=== PATIENT | female | born 1945 | race Caucasian/White ===

== ENCOUNTER 2016-07-28 14:00 | Emergency (ER) | payer OTHER ==
[~2016-07-28] VITALS: Ht 160 cm; Wt 220.0 kg
[~2016-07-28 14:00] MED LIST: ACID CONTROLLER20 MG PO; ADVAIR HFA120 INHALA IH; ALBUTEROL2.5 MG/3 M IH; AMBIEN10 M1 PO; AMBIEN10 MG PO; AMBIEN5 MG PO; AMOX TR-K CLV1 EAC4 PO; ANTIBIOTIC; ASPIR 8181 M1 PO; ATIVAN0.5 MG PO; Advair HFA 115/21 IH; Ambien PO; BENTYL10 MG PO; BP PILL; BUSPAR10 MG PO; Bentyl PO; CARAFATE1 GM PO; CARDIZEM CD,CA180 MG PO; CARDIZEM CD240 MG PO; CARTIA XT240 MG PO; CEFTIN500 MG PO; CELEXA10 MG PO; CELEXA20 MG PO; CIPRO500 MG PO; CLONIDINE HCL0.1 MG PO; COLACE100 MG PO; COUMADIN,JANTO2.5 MG PO; COUMADIN,JANTOV10 MG PO; COUMADIN,JANTOVE4 MG PO; COUMADIN,JANTOVE5 MG PO; COUMADIN3 M1 PO; COUMADIN5 MG PO; COUMADIN6 MG PO; COZAAR100 MG PO; Combivent IH; Coumadin,Jantoven PO; Cozaar PO; DEPAKOTE500 MG PO; DIGOXIN125 MCG PO; DILTIAZEM 24HR240 MG PO; DOXYCYCLINE HY100 MG PO; DUONEB 2.5-0.5 M3 ML IH; DUONEB3 ML IH; ENDOCET 5-3251 EACH PO; FEOSOL325 MG PO; FEROSUL325 MG PO; FUROSEMIDE20 MG PO; FUROSEMIDE40 MG PO; Feosol PO; K-DUR10 MEQ PO; K-DUR20 MEQ PO; K-Dur PO; KEPPRA250 MG PO; LASIX20 MG PO; LEVAQUIN750 MG PO; LIDOCAINE700 MG TD; LIDODERM 5% P1 PATCH TD; LISINOPRIL30 MG PO; LOPRESSOR25 MG PO; LORAZEPAM0.5 MG PO; LOSARTAN POTAS100 MG PO; LOSARTAN POTASS50 MG PO; LYRICA75 MG PO; Lasix PO; Levaquin PO; METHADONE5 MG PO; METHADOSE5 MG PO; METOPROLOL SUCC50 MG PO; MOTRIN600 MG PO; Methadone HCl PO; NORCO 5/3251 TABLET PO; NORVASC5 MG PO; OXYCODONE HCL10 MG PO; OXYCODONE HCL5 MG PO; PANTOPRAZOLE SO40 MG PO; PERCOCET; PERCOCET 10/1 TABLET PO; PERCOCET 5/31 TABLET PO; PERCOCET 7.51 TABLET PO; PREDNISONE10 M1 PO; PREDNISONE10 MG PO; PREDNISONE20 MG PO; PROAIR HFA8.5 GM IH; PROTONIX40 MG PO; PROVENTIL HFA6.7 GM IH; PROVENTIL,2.5 MG/3 M IH; Protonix PO; ROBITUSSIN AC,T10 ML PO; ROXICODONE5 MG PO; SILVADENE20 GM TP; SPIRIVA RESPIMAT4 GM IH; SUBOXONE 8 MG-1 EAC2 SL; Slow Fe PO; THERAGRAN1 TABLET PO; TOPROL XL50 MG PO; TYLENOL EXTRA500 MG PO; TYLENOL WITH C1 EACH PO; TYLENOL325 M1 PO; Tylenol Regular Stre PO; ULTRAM50 MG PO; VALIUM2 MG PO; VALIUM5 MG PO; VAPOR INHALER50 MG BOTH NARES; WARFARIN SODIUM2 MG PO; WARFARIN SODIUM6 MG PO; ZESTRIL,PRINIVI20 MG PO; ZOCOR80 MG PO; ZOLPIDEM TARTRA10 MG PO; ZOLPIDEM TARTRAT5 MG PO; [UNRECOGNIZED DRUG - REMARK]; ambien; celeXA PO; losartan
[2016-07-28 15:03] LABS: HEMATOCRIT 31.2 % (36.0-46.0); MCH 28.7 PG (29.0-34.0); MCHC 32.4 G/DL (30.0-36.0); MCV 88.6 FL (83-99); MEAN PLAT.VOLUME 10.7 uM^3 (9.5-12.4); PLATELET COUNT 199 K/uL (156-360); RBC DIS.WIDTH-CV 15.3 % (11.8-14.6); RBC DIS.WIDTH-SD 48.4 % (39-53); RED BLOOD COUNT 3.52 M/uL (3.80-5.20)
[2016-07-28 15:09] LABS: CHLORIDE 102 mEq/L (99-109); POTASSIUM 3.1 mEq/L (3.7-5.4); SODIUM 137 mEq/L (136-147)
[2016-07-28 15:10] LABS: GLUCOSE 109 mg/dL (70-99)
[2016-07-28 15:12] LABS: ANION GAP 10 MEQ/L (2-14)
[2016-07-28 15:14] LABS: GFR ESTIMATE (CALCULATED) 58 mL/min/; SERUM ETHYL ALCOHOL < 10 mg/dL
[2016-07-28 15:16] LABS: UREA NITROGEN (BUN) 12 mg/dL (9-23)
[2016-07-28 15:18] LABS: SALICYLATE < 5.0 MG/DL (15-30)
[2016-07-28 15:22] LABS: ADD MIUA? YES; BILIRUBIN NEGATIVE; BLOOD SMALL; COLOR YELLOW ((YELLOW)); GLUCOSE (STRIP) NEGATIVE; KETONES NEGATIVE; LEUKOCYTES MODERATE; NITRITE NEGATIVE; PROTEIN (STRIP) NEGATIVE; SPECIFIC GRAVITY 1.012 (1.000-1.030); UROBILINOGEN 0.2 MG/DL (0.2-1.0)
[2016-07-28 15:38] LABS: AMPHETAMINE NEGATIVE (500 ng/mL); BARBITURATES PRESUMPTIVE POSITIVE (200 ng/mL); BENZODIAZEPINES NEGATIVE (150 ng/mL); COCAINE NEGATIVE (150 ng/mL); INTERNAL CONTROLS VALID? YES; METHADONE NEGATIVE (200 ng/mL); METHAMPHETAMINE NEGATIVE (500 ng/mL); OPIATES (MORPHINE) PRESUMPTIVE POSITIVE (100 ng/mL); OXYCODONE PRESUMPTIVE POSITIVE (100 ng/mL); PHENCYCLIDINE NEGATIVE (25 ng/mL); PROPOXYPHENE NEGATIVE (300 ng/mL); THC CANNABINOIDS NEGATIVE (50 ng/mL); TRICYCLIC ANTIDEPRESSANTS NEGATIVE (300 ng/mL)
[2016-07-28 15:39] LABS: ADD MEDTOX COMMENT Y
[2016-07-28 15:55] LABS: BACTERIA NONE SEEN /HPF; EPITHELIAL CELLS NONE SEEN /HPF; MUCUS NONE SEEN /LPF; UCUL ADDED? NO; WHITE BLOOD CELLS 0-5 /HPF (0-5)
[2016-07-28 19:00] VITALS: BP 105/87
== END 2016-07-28 19:02 | disposition home or self-care (01) ==
LOC: EME 14:00
PROVIDERS: Emergency Medicine
DX: F32.9 Major depressive disorder, single episode, unspecified (principal)
CPT/HCPCS: 80048; 81003; 84999; 85027; 90837; 93005; 99281; 99285; G0480

== ENCOUNTER 2016-08-23 14:30 | Inpatient (IN) | payer OTHER ==
[~2016-08-23] VITALS: Ht 162.6 cm; Wt 104.6 kg
[2016-08-23 15:30] LABS: HEMATOCRIT 33.1 % (36.0-46.0); MCH 28.7 PG (29.0-34.0); MCHC 31.1 G/DL (30.0-36.0); MCV 92.2 FL (83-99); MEAN PLAT.VOLUME 9.8 uM^3 (9.5-12.4); RBC DIS.WIDTH-SD 54.4 % (39-53); RED BLOOD COUNT 3.59 M/uL (3.80-5.20)
[2016-08-23 15:37] LABS: PLATELET COUNT 265 K/uL (156-360); WHITE BLOOD COUNT 7.2 K/uL (4.1-10.2)
[2016-08-23 15:39] LABS: CHLORIDE 105 mEq/L (99-109); POTASSIUM 3.9 mEq/L (3.7-5.4); SODIUM 140 mEq/L (136-147)
[2016-08-23 15:41] LABS: GLUCOSE 100 mg/dL (70-99)
[2016-08-23 15:43] LABS: ANION GAP 9 MEQ/L (2-14)
[2016-08-23 15:44] LABS: PROTHROMBIN TIME 66.9 (9.2-11.2); PTT 53.1 (25-32)
[2016-08-23 15:45] LABS: GFR ESTIMATE (CALCULATED) 43 mL/min/
[2016-08-23 15:46] LABS: UREA NITROGEN (BUN) 16 mg/dL (9-23)
[2016-08-23 15:47] LABS: INTER. NORMALIZED RATIO 6.2
[2016-08-23 15:53] LABS: DIGOXIN 0.8 ng/mL (0.8-2.0)
[2016-08-23 16:10] LABS: ADD MIUA? YES; BILIRUBIN NEGATIVE; BLOOD NEGATIVE; COLOR YELLOW ((YELLOW)); GLUCOSE (STRIP) NEGATIVE; KETONES NEGATIVE; LEUKOCYTES SMALL; NITRITE POSITIVE; PROTEIN (STRIP) NEGATIVE; SPECIFIC GRAVITY 1.018 (1.000-1.030); UROBILINOGEN 0.2 MG/DL (0.2-1.0)
[2016-08-23 16:37] LABS: BACTERIA 2+ /HPF; CALCIUM OXALATE CRYSTALS 1+ /HPF; EPITHELIAL CELLS RARE /HPF; HYALINE CASTS 15-20 /LPF; MUCUS 1+ /LPF; RED BLOOD CELLS 0-5 /HPF (0-5); UCUL ADDED? YES
[2016-08-23] MEDS ORDERED: LOPRESSOR25 MG PO (16:42)
[2016-08-23] MEDS ORDERED: FLUOXETINE HCL20 MG PO (16:43)
[2016-08-23] MEDS ORDERED: LOSARTAN POTAS100 MG PO (16:44)
[2016-08-23] MEDS ORDERED: DIGOX125 MCG PO (17:38)
[2016-08-23 20:10] LABS: TROP-I INTERPRETATION NEGATIVE; TROPONIN-I 0.02 ng/mL (0.0-0.30)
[2016-08-23 20:23] VITALS: BP 99/53
[2016-08-24 00:46] VITALS: BP 112/65
[2016-08-24 01:11] LABS: TROP-I INTERPRETATION NEGATIVE; TROPONIN-I < 0.01 ng/mL (0.0-0.30)
[2016-08-24 03:38] VITALS: BP 110/54
[2016-08-24 07:41] VITALS: BP 115/74
[2016-08-24 07:46] LABS: PROTHROMBIN TIME 57.3 (9.2-11.2)
[2016-08-24 07:59] LABS: ANION GAP 10 MEQ/L (2-14); CHLORIDE 105 MEQ/L (99-109); GFR ESTIMATE (CALCULATED) 52 mL/min/; GLUCOSE 82 mg/dL (70-99); HEMATOCRIT 31.7 % (36.0-46.0); MCH 28.8 PG (29.0-34.0); MCHC 31.2 G/DL (30.0-36.0); MCV 92.2 FL (83-99); MEAN PLAT.VOLUME 10.1 uM^3 (9.5-12.4); PLATELET COUNT 238 K/uL (156-360); POTASSIUM 3.4 MEQ/L (3.7-5.4); RBC DIS.WIDTH-SD 53.8 % (39-53); RED BLOOD COUNT 3.44 M/uL (3.80-5.20); SAMPLE HEMOLYSIS CHECK 0; SAMPLE ICTERIC CHECK 0; SAMPLE LIPEMIA CHECK 0; SODIUM 142 MEQ/L (136-147); UREA NITROGEN (BUN) 15 mg/dL (9-23)
[2016-08-24 08:02] LABS: WHITE BLOOD COUNT 4.9 K/uL (4.1-10.2)
[2016-08-24 08:06] LABS: TROP-I INTERPRETATION NEGATIVE; TROPONIN-I < 0.01 ng/mL (0.0-0.30)
[2016-08-24 08:10] LABS: INTER. NORMALIZED RATIO 5.3
[2016-08-24 11:42] VITALS: BP 112/69
[2016-08-24 15:18] VITALS: BP 117/64
[2016-08-24 20:00] VITALS: BP 111/67
[2016-08-25] VITALS (9 sets, daily range): BP systolic 103–160; BP diastolic 67–84
[2016-08-25 07:55] LABS: INTER. NORMALIZED RATIO 3.7
[2016-08-25 08:03] LABS: ANION GAP 7 MEQ/L (2-14); CHLORIDE 107 MEQ/L (99-109); GFR ESTIMATE (CALCULATED) > 59 mL/min/; GLUCOSE 94 mg/dL (70-99); POTASSIUM 3.5 MEQ/L (3.7-5.4); SAMPLE HEMOLYSIS CHECK 0; SAMPLE ICTERIC CHECK 0; SAMPLE LIPEMIA CHECK 0; SODIUM 142 MEQ/L (136-147); UREA NITROGEN (BUN) 12 mg/dL (9-23)
[2016-08-25 08:20] LABS: HEMATOCRIT 28.1 % (36.0-46.0); MCH 29.2 PG (29.0-34.0); MCV 91.2 FL (83-99); MEAN PLAT.VOLUME 10.1 uM^3 (9.5-12.4); PLATELET COUNT 222 K/uL (156-360); RBC DIS.WIDTH-CV 16.2 % (11.8-14.6); RBC DIS.WIDTH-SD 53.2 % (39-53); RED BLOOD COUNT 3.08 M/uL (3.80-5.20); WHITE BLOOD COUNT 4.4 K/uL (4.1-10.2)
[2016-08-26 04:00] VITALS: BP 151/81
[2016-08-26 07:27] LABS: HEMATOCRIT 30.4 % (36.0-46.0); MCH 28.4 PG (29.0-34.0); MCHC 31.9 G/DL (30.0-36.0); MCV 89.1 FL (83-99); MEAN PLAT.VOLUME 10.3 uM^3 (9.5-12.4); PLATELET COUNT 243 K/uL (156-360); RED BLOOD COUNT 3.41 M/uL (3.80-5.20); WHITE BLOOD COUNT 5.2 K/uL (4.1-10.2)
[2016-08-26 07:45] LABS: ANION GAP 8 MEQ/L (2-14); CHLORIDE 105 MEQ/L (99-109); GFR ESTIMATE (CALCULATED) > 59 mL/min/; GLUCOSE 104 mg/dL (70-99); POTASSIUM 3.3 MEQ/L (3.7-5.4); SAMPLE HEMOLYSIS CHECK 0; SAMPLE ICTERIC CHECK 0; SAMPLE LIPEMIA CHECK 0; SODIUM 141 MEQ/L (136-147); UREA NITROGEN (BUN) 9 mg/dL (9-23)
[2016-08-26 08:02] VITALS: BP 143/92
[2016-08-26 08:02] LABS: INTER. NORMALIZED RATIO 1.9; PROTHROMBIN TIME 19.4 (9.2-11.2)
[2016-08-26 12:00] VITALS: BP 117/81
[2016-08-26 15:48] VITALS: BP 111/68
[2016-08-26 19:32] VITALS: BP 126/75
[2016-08-27 00:16] VITALS: BP 137/80
[2016-08-27 04:32] VITALS: BP 129/77
[2016-08-27 06:38] LABS: HEMATOCRIT 30.6 % (36.0-46.0); MCHC 32.4 G/DL (30.0-36.0); MCV 89.7 FL (83-99); PLATELET COUNT 238 K/uL (156-360); RBC DIS.WIDTH-CV 16.3 % (11.8-14.6); RED BLOOD COUNT 3.41 M/uL (3.80-5.20); WHITE BLOOD COUNT 5.4 K/uL (4.1-10.2)
[2016-08-27 06:59] LABS: INTER. NORMALIZED RATIO 1.4; PROTHROMBIN TIME 14.5 (9.2-11.2)
[2016-08-27 07:02] LABS: ANION GAP 10 MEQ/L (2-14); CHLORIDE 103 MEQ/L (99-109); GFR ESTIMATE (CALCULATED) > 59 mL/min/; GLUCOSE 106 mg/dL (70-99); POTASSIUM 3.3 MEQ/L (3.7-5.4); SAMPLE HEMOLYSIS CHECK 0; SAMPLE ICTERIC CHECK 0; SAMPLE LIPEMIA CHECK 0; SODIUM 141 MEQ/L (136-147); UREA NITROGEN (BUN) 8 mg/dL (9-23)
[2016-08-27 08:40] VITALS: BP 147/67
[2016-08-27 15:54] VITALS: BP 147/85
[2016-08-27 19:59] VITALS: BP 129/74
[2016-08-27 23:57] VITALS: BP 129/76
[2016-08-28 04:07] VITALS: BP 127/79
[2016-08-28 07:32] VITALS: BP 156/71
[2016-08-28 07:45] LABS: INTER. NORMALIZED RATIO 1.3
[2016-08-28 11:06] VITALS: BP 170/85
[2016-08-28] MEDS ORDERED: XARELTO20 MG PO (11:46)
[2016-08-28] MEDS ORDERED: FERROUS SULFAT325 MG PO (11:46)
[2016-08-28] MEDS ORDERED: CEFTIN500 MG PO (11:46)
[2016-08-28] MEDS ORDERED: AMBIEN5 MG PO (12:18)
== END 2016-08-28 16:35 | disposition home health service (06) | DRG 315 ==
LOC: EME 14:30 → 5SOUTH 18:31 → EDOF 18:31 → 5SOUTH 20:10
PROVIDERS: Emergency Medicine; Hospitalist; Nurse Practitioner Adult Health; Physician Assistant Medical
DX: I95.89 Other hypotension (principal); D68.32 Hemorrhagic disorder due to extrinsic circulating anticoagulants; I27.2 Other secondary pulmonary hypertension; J44.9 Chronic obstructive pulmonary disease, unspecified; E66.01 Morbid (severe) obesity due to excess calories; R00.1 Bradycardia, unspecified; I48.2 Chronic atrial fibrillation; N39.0 Urinary tract infection, site not specified; R55 Syncope and collapse; I10 Essential (primary) hypertension; T50.995A Adverse effect of other drugs, medicaments and biological substances, initial encounter; G89.29 Other chronic pain; Z79.01 Long term (current) use of anticoagulants; E78.5 Hyperlipidemia, unspecified; I25.2 Old myocardial infarction; I25.10 Atherosclerotic heart disease of native coronary artery without angina pectoris; J45.909 Unspecified asthma, uncomplicated; Z86.718 Personal history of other venous thrombosis and embolism; F31.9 Bipolar disorder, unspecified; I73.9 Peripheral vascular disease, unspecified; T45.515A Adverse effect of anticoagulants, initial encounter; M79.7 Fibromyalgia; I35.0 Nonrheumatic aortic (valve) stenosis; K21.9 Gastro-esophageal reflux disease without esophagitis; Z95.9 Presence of cardiac and vascular implant and graft, unspecified; R51 Headache; E87.6 Hypokalemia; Z68.39 Body mass index [BMI] 39.0-39.9, adult
CPT/HCPCS: 70450; 71010; 73560; 80048; 80162; 81003; 82272; 84132; 84443; 84484; 85027; 85610; 85730; 87040; 87077; 87086; 87186; 93005; 94640 76; 99202; 99281; 99285; J0696; J1940; J7030; J7050

== ENCOUNTER 2016-10-17 14:54 | Observation (INO) | payer OTHER ==
[~2016-10-17] VITALS: Ht 162.6 cm; Wt 95.8 kg
[~2016-10-17 14:54] MED LIST changes: +DIGOX125 MCG PO; +FERROUS SULFAT325 MG PO; +FLUOXETINE HCL20 MG PO; +XARELTO20 MG PO
[2016-10-17 15:48] LABS: HEMATOCRIT 38.9 % (36.0-46.0); MCH 30.1 PG (29.0-34.0); MCHC 32.6 G/DL (30.0-36.0); MCV 92.2 FL (83-99); MEAN PLAT.VOLUME 11.1 uM^3 (9.5-12.4); PLATELET COUNT 215 K/uL (156-360); RBC DIS.WIDTH-CV 15.1 % (11.8-14.6); RBC DIS.WIDTH-SD 51.6 % (39-53); RED BLOOD COUNT 4.22 M/uL (3.80-5.20); WHITE BLOOD COUNT 5.9 K/uL (4.1-10.2)
[2016-10-17 15:56] LABS: CHLORIDE 100 mEq/L (99-109); POTASSIUM 2.8 mEq/L (3.7-5.4); SODIUM 141 mEq/L (136-147)
[2016-10-17 15:59] LABS: GLUCOSE 128 mg/dL (70-99)
[2016-10-17 16:00] LABS: ANION GAP 11 MEQ/L (2-14)
[2016-10-17 16:01] LABS: TOTAL BILIRUBIN 0.5 mg/dL (0.0-1.0)
[2016-10-17 16:02] LABS: ALKALINE PHOSPHATASE 123 IU/L (3-129); GFR ESTIMATE (CALCULATED) 52 mL/min/
[2016-10-17 16:03] LABS: UREA NITROGEN (BUN) 10 mg/dL (9-23)
[2016-10-17 16:11] LABS: TROP-I INTERPRETATION NEGATIVE; TROPONIN-I < 0.01 ng/mL (0.0-0.30)
[2016-10-17 18:27] LABS: ADD MIUA? YES; BILIRUBIN NEGATIVE; BLOOD SMALL; COLOR YELLOW ((YELLOW)); GLUCOSE (STRIP) NEGATIVE; KETONES NEGATIVE; LEUKOCYTES LARGE; NITRITE NEGATIVE; PROTEIN (STRIP) NEGATIVE; SPECIFIC GRAVITY 1.012 (1.000-1.030); UROBILINOGEN 0.2 MG/DL (0.2-1.0)
[2016-10-17 18:34] LABS: BACTERIA NONE SEEN /HPF; EPITHELIAL CELLS RARE /HPF; MUCUS TRACE /LPF; RED BLOOD CELLS 0-5 /HPF (0-5); UCUL ADDED? NO; WHITE BLOOD CELLS 30-40 /HPF (0-5)
[2016-10-17] MEDS ORDERED: XARELTO20 MG PO (19:20)
[2016-10-17] MEDS ORDERED: PERCOCET 7.51 TABLET PO (19:20)
[2016-10-17] MEDS ORDERED: AMBIEN5 MG PO (19:20)
[2016-10-17 22:23] VITALS: BP 131/71
[2016-10-17 23:05] LABS: POTASSIUM 2.8 mEq/L (3.7-5.4)
[2016-10-17 23:17] LABS: TROP-I INTERPRETATION NEGATIVE; TROPONIN-I 0.01 ng/mL (0.0-0.30)
[2016-10-17 23:19] LABS: DIGOXIN 0.7 ng/mL (0.8-2.0)
[2016-10-18 04:30] LABS: MAGNESIUM 1.6 mg/dL (1.3-2.7)
[2016-10-18 04:34] VITALS: BP 102/54
[2016-10-18 05:57] LABS: CHLORIDE 105 mEq/L (99-109); POTASSIUM 3.1 mEq/L (3.7-5.4); SODIUM 143 mEq/L (136-147)
[2016-10-18 05:58] LABS: MAGNESIUM 1.7 mg/dL (1.3-2.7)
[2016-10-18 05:59] LABS: GLUCOSE 99 mg/dL (70-99)
[2016-10-18 06:00] LABS: ANION GAP 8 MEQ/L (2-14)
[2016-10-18 06:03] LABS: GFR ESTIMATE (CALCULATED) > 59 mL/min/
[2016-10-18 06:04] LABS: UREA NITROGEN (BUN) 10 mg/dL (9-23)
[2016-10-18 06:12] LABS: TROP-I INTERPRETATION NEGATIVE; TROPONIN-I < 0.01 ng/mL (0.0-0.30)
[2016-10-18 06:13] LABS: DIGOXIN 0.7 ng/mL (0.8-2.0)
[2016-10-18 06:32] LABS: EOSINOPHIL (%) 2.9 % (0-5); EOSINOPHIL COUNT 0.1 K/uL (0-0.3); HEMATOCRIT 32.6 % (36.0-46.0); INSTRUMENT ABS NEUTROPHIL CT 2.1 K/uL; LYMPHOCYTE COUNT 1.2 K/uL (1.0-2.8); MCHC 32.8 G/DL (30.0-36.0); MCV 94.5 FL (83-99); MEAN PLAT.VOLUME 11.1 uM^3 (9.5-12.4); MONOCYTE (%) 8.5 % (3-12); MONOCYTE COUNT 0.3 K/uL (0-0.8); NEUTROPHIL (%) 56.9 % (45-76); NEUTROPHIL COUNT 2.1 K/uL (1.8-6.4); PLATELET COUNT 163 K/uL (156-360); RBC DIS.WIDTH-CV 15.3 % (11.8-14.6); RBC DIS.WIDTH-SD 53.2 % (39-53); RED BLOOD COUNT 3.45 M/uL (3.80-5.20)
[2016-10-18 06:37] LABS: WHITE BLOOD COUNT 3.8 K/uL (4.1-10.2)
[2016-10-18 12:01] VITALS: BP 98/56
[2016-10-18 12:03] VITALS: BP 118/65
[2016-10-18 12:05] VITALS: BP 112/64
[2016-10-18] MEDS ORDERED: CEFDINIR300 MG PO (14:30)
[2016-10-18] MEDS ORDERED: PERCOCET 2.51 TABLET PO (14:30)
[2016-10-18] MEDS ORDERED: KLOR-CON M2020 MEQ PO (14:30)
[2016-10-18] MEDS ORDERED: FUROSEMIDE40 MG PO (14:30)
== END 2016-10-18 15:36 | disposition home or self-care (01) ==
LOC: EME 14:54 → 5WEST 21:16 → EDOF 21:16 → 5WEST 22:03
PROVIDERS: Emergency Medicine; Hospitalist
DX: I95.9 Hypotension, unspecified (principal); R55 Syncope and collapse; R07.89 Other chest pain; E87.6 Hypokalemia; S20.211A Contusion of right front wall of thorax, initial encounter; W19.XXXA Unspecified fall, initial encounter; I48.2 Chronic atrial fibrillation; I11.0 Hypertensive heart disease with heart failure; E78.5 Hyperlipidemia, unspecified; J45.909 Unspecified asthma, uncomplicated; J44.9 Chronic obstructive pulmonary disease, unspecified; G89.4 Chronic pain syndrome; F31.9 Bipolar disorder, unspecified; I25.10 Atherosclerotic heart disease of native coronary artery without angina pectoris; I25.2 Old myocardial infarction; I50.30 Unspecified diastolic (congestive) heart failure; K21.9 Gastro-esophageal reflux disease without esophagitis; N39.0 Urinary tract infection, site not specified; Z86.718 Personal history of other venous thrombosis and embolism; I27.2 Other secondary pulmonary hypertension; F41.9 Anxiety disorder, unspecified; M47.896 Other spondylosis, lumbar region; Z96.653 Presence of artificial knee joint, bilateral; Z79.01 Long term (current) use of anticoagulants
CPT/HCPCS: 70450; 71260; 74177; 80048; 80053; 80162; 81003; 83735; 84132 91; 84484; 85025; 85027; 93005; 94640; 95819; 99202; G0378; G8978 GP CI; G8979 GP CH; J2270; J3475; J3480; J7030

== ENCOUNTER 2016-12-28 14:51 | Observation (INO) | payer OTHER ==
[~2016-12-28] VITALS: Ht 162.6 cm; Wt 94.9 kg
[~2016-12-28 14:51] MED LIST changes: +CEFDINIR300 MG PO; +KLOR-CON M2020 MEQ PO; +PERCOCET 2.51 TABLET PO
[2016-12-28 17:12] LABS: HEMATOCRIT 38.8 % (36.0-46.0); MCH 30.8 PG (29.0-34.0); MCV 93.3 FL (83-99); PLATELET COUNT 218 K/uL (156-360); RBC DIS.WIDTH-CV 13.4 % (11.8-14.6); RBC DIS.WIDTH-SD 45.6 % (39-53); RED BLOOD COUNT 4.16 M/uL (3.80-5.20); WHITE BLOOD COUNT 7.9 K/uL (4.1-10.2)
[2016-12-28 17:19] LABS: INTER. NORMALIZED RATIO 1.8; PROTHROMBIN TIME 19.9 SEC (10.2-12.9)
[2016-12-28 17:21] LABS: PTT 37.7 SEC (25-37)
[2016-12-28 17:24] LABS: CHLORIDE 100 mEq/L (99-109); POTASSIUM 3.1 mEq/L (3.7-5.4); SODIUM 141 mEq/L (136-147)
[2016-12-28 17:26] LABS: GLUCOSE 104 mg/dL (70-99)
[2016-12-28 17:27] LABS: ANION GAP 15 MEQ/L (2-14)
[2016-12-28 17:30] LABS: GFR ESTIMATE (CALCULATED) > 59 mL/min/
[2016-12-28 17:31] LABS: UREA NITROGEN (BUN) 8 mg/dL (9-23)
[2016-12-28 17:34] LABS: TROP-I INTERPRETATION NEGATIVE; TROPONIN-I < 0.01 ng/mL (0.0-0.30)
[2016-12-28] MEDS ORDERED: PERCOCET 10/1 TABLET PO (21:35)
[2016-12-28 22:52] VITALS: BP 126/85
[2016-12-29 04:14] VITALS: BP 107/81
[2016-12-29 06:16] LABS: HEMATOCRIT 31.9 % (36.0-46.0); MCH 31.6 PG (29.0-34.0); MCHC 33.2 G/DL (30.0-36.0); MCV 95.2 FL (83-99); MEAN PLAT.VOLUME 10.4 uM^3 (9.5-12.4); PLATELET COUNT 182 K/uL (156-360); RBC DIS.WIDTH-CV 13.6 % (11.8-14.6); RBC DIS.WIDTH-SD 47.3 % (39-53); RED BLOOD COUNT 3.35 M/uL (3.80-5.20)
[2016-12-29 06:55] LABS: ANION GAP 8 MEQ/L (2-14); CHLORIDE 105 MEQ/L (99-109); GFR ESTIMATE (CALCULATED) > 59 mL/min/; GLUCOSE 83 mg/dL (70-99); POTASSIUM 3.1 MEQ/L (3.7-5.4); SAMPLE HEMOLYSIS CHECK 0; SAMPLE ICTERIC CHECK 0; SAMPLE LIPEMIA CHECK 0; SODIUM 140 MEQ/L (136-147); UREA NITROGEN (BUN) 7 mg/dL (9-23)
[2016-12-29 08:18] VITALS: BP 122/77
[2016-12-29 11:27] VITALS: BP 136/60
[2016-12-29] MEDS ORDERED: LOVENOX80 MG/0.8 SC (12:37)
[2016-12-29] MEDS ORDERED: COUMADIN5 MG PO (13:03)
[2016-12-29 13:21] LABS: INTER. NORMALIZED RATIO 1.3; PROTHROMBIN TIME 14.5 SEC (10.2-12.9)
== END 2016-12-29 15:53 | disposition home or self-care (01) ==
LOC: RME 14:51 → EME 14:51 → EDOF 21:39 → 5WEST 22:42
PROVIDERS: Hospitalist; Nurse Practitioner Adult Health; Nurse Practitioner Family
DX: I82.411 Acute embolism and thrombosis of right femoral vein (principal); I82.441 Acute embolism and thrombosis of right tibial vein; I82.890 Acute embolism and thrombosis of other specified veins; E87.6 Hypokalemia; R07.89 Other chest pain; Z86.718 Personal history of other venous thrombosis and embolism; J44.9 Chronic obstructive pulmonary disease, unspecified; I11.0 Hypertensive heart disease with heart failure; I50.9 Heart failure, unspecified; I25.2 Old myocardial infarction; G43.909 Migraine, unspecified, not intractable, without status migrainosus; K21.9 Gastro-esophageal reflux disease without esophagitis; F41.9 Anxiety disorder, unspecified; Z86.73 Personal history of transient ischemic attack (TIA), and cerebral infarction without residual deficits; M79.7 Fibromyalgia; Z98.84 Bariatric surgery status; Z79.01 Long term (current) use of anticoagulants; Z88.0 Allergy status to penicillin; Z88.2 Allergy status to sulfonamides; I48.2 Chronic atrial fibrillation; E78.5 Hyperlipidemia, unspecified; G89.4 Chronic pain syndrome; E66.9 Obesity, unspecified; I25.10 Atherosclerotic heart disease of native coronary artery without angina pectoris; F31.9 Bipolar disorder, unspecified; Z96.653 Presence of artificial knee joint, bilateral; Z91.19 Patient's noncompliance with other medical treatment and regimen; Z95.828 Presence of other vascular implants and grafts
CPT/HCPCS: 71275; 80048; 81240 90; 81241 90; 84484; 85027; 85610; 85730; 93005; 93971; 99202; 99281; 99285; G0378; J1650; J7030

== ENCOUNTER 2017-01-27 18:04 | Observation (INO) | payer OTHER ==
[~2017-01-27] VITALS: Ht 162.6 cm; Wt 83.2 kg
[~2017-01-27 18:04] MED LIST changes: +LOVENOX80 MG/0.8 SC
[2017-01-27 18:58] LABS: HEMATOCRIT 43.1 % (36.0-46.0); MCH 30.8 PG (29.0-34.0); MCHC 34.6 G/DL (30.0-36.0); MCV 89.2 FL (83-99); MEAN PLAT.VOLUME 10.1 uM^3 (9.5-12.4); PLATELET COUNT 289 K/uL (156-360); RBC DIS.WIDTH-CV 13.9 % (11.8-14.6); RBC DIS.WIDTH-SD 45.1 % (39-53); RED BLOOD COUNT 4.83 M/uL (3.80-5.20)
[2017-01-27 19:02] LABS: CHLORIDE 102 mEq/L (99-109); SODIUM 142 mEq/L (136-147)
[2017-01-27 19:04] LABS: GLUCOSE 131 mg/dL (70-99)
[2017-01-27 19:06] LABS: ANION GAP 16 MEQ/L (2-14)
[2017-01-27 19:08] LABS: GFR ESTIMATE (CALCULATED) > 59 mL/min/
[2017-01-27 19:09] LABS: UREA NITROGEN (BUN) 6 mg/dL (9-23)
[2017-01-27 19:15] LABS: TROP-I INTERPRETATION NEGATIVE; TROPONIN-I < 0.01 ng/mL (0.0-0.30)
[2017-01-27] MEDS ORDERED: COUMADIN5 MG PO (20:21)
[2017-01-27] MEDS ORDERED: FUROSEMIDE40 MG PO (20:22)
[2017-01-27 20:25] LABS: TOTAL BILIRUBIN 1.3 mg/dL (0.0-1.0)
[2017-01-27 20:26] LABS: ALKALINE PHOSPHATASE 200 IU/L (3-129)
[2017-01-27 20:29] LABS: DIRECT BILIRUBIN 0.6 mg/dL (0.0-0.3)
[2017-01-27 20:30] LABS: LIPASE 36 U/L (1.0-51.0)
[2017-01-27 23:03] LABS: INTER. NORMALIZED RATIO 2.4
[2017-01-27 23:05] LABS: PTT 37.2 SEC (25-37)
[2017-01-27 23:10] LABS: PROTHROMBIN TIME 26.9 SEC (10.2-12.9)
[2017-01-28] VITALS: BP 135/88
[2017-01-28 00:58] LABS: TROP-I INTERPRETATION NEGATIVE; TROPONIN-I 0.01 ng/mL (0.0-0.30)
[2017-01-28 05:00] VITALS: BP 127/76
[2017-01-28 08:13] LABS: HEMATOCRIT 39.1 % (36.0-46.0); MCH 31.8 PG (29.0-34.0); MCHC 34.8 G/DL (30.0-36.0); MCV 91.4 FL (83-99); MEAN PLAT.VOLUME 10.1 uM^3 (9.5-12.4); PLATELET COUNT 270 K/uL (156-360); RBC DIS.WIDTH-CV 14.4 % (11.8-14.6); RBC DIS.WIDTH-SD 48.2 % (39-53); RED BLOOD COUNT 4.28 M/uL (3.80-5.20); WHITE BLOOD COUNT 6.3 K/uL (4.1-10.2)
[2017-01-28 08:21] LABS: INTER. NORMALIZED RATIO 2.3
[2017-01-28 08:40] LABS: TROP-I INTERPRETATION NEGATIVE; TROPONIN-I 0.02 ng/mL (0.0-0.30)
[2017-01-28 08:52] VITALS: BP 116/85
[2017-01-28] MEDS ORDERED: K-DUR20 MEQ PO (08:59)
[2017-01-28 09:15] LABS: ANION GAP 11 MEQ/L (2-14); CHLORIDE 102 MEQ/L (99-109); SAMPLE HEMOLYSIS CHECK 0; SAMPLE ICTERIC CHECK 0; SAMPLE LIPEMIA CHECK 0; SODIUM 140 MEQ/L (136-147)
[2017-01-28 09:20] LABS: GFR ESTIMATE (CALCULATED) > 59 mL/min/; GLUCOSE 105 mg/dL (70-99); UREA NITROGEN (BUN) 8 mg/dL (9-23)
[2017-01-28 09:25] LABS: MAGNESIUM 1.7 mg/dl (1.3-2.7)
== END 2017-01-28 14:34 | disposition home or self-care (01) ==
LOC: EME 18:04 → EDOF 22:17 → ENRESERV 22:19 → 5WEST 22:55 → ENPENDDIS 01-28 → 5WEST 01-28 14:34
PROVIDERS: Hospitalist
DX: R07.9 Chest pain, unspecified (principal); I48.91 Unspecified atrial fibrillation; Z79.01 Long term (current) use of anticoagulants; E87.6 Hypokalemia; I49.3 Ventricular premature depolarization; Z86.718 Personal history of other venous thrombosis and embolism; Z98.890 Other specified postprocedural states; I25.10 Atherosclerotic heart disease of native coronary artery without angina pectoris; I25.2 Old myocardial infarction; I11.0 Hypertensive heart disease with heart failure; I50.32 Chronic diastolic (congestive) heart failure; I27.2 Other secondary pulmonary hypertension; G89.4 Chronic pain syndrome; E78.5 Hyperlipidemia, unspecified; J45.909 Unspecified asthma, uncomplicated; F31.9 Bipolar disorder, unspecified; M48.56XG Collapsed vertebra, not elsewhere classified, lumbar region, subsequent encounter for fracture with delayed healing; Z88.2 Allergy status to sulfonamides; Z88.0 Allergy status to penicillin; Z88.7 Allergy status to serum and vaccine
CPT/HCPCS: 36600; 71020; 80048; 80076; 80164; 82140; 82803; 83690; 83735; 84484; 85027; 85610; 85730; 93005; 99202; 99281; 99285; G0378; J2270; J3475

== ENCOUNTER 2017-03-06 14:49 | Observation (INO) | payer OTHER ==
[~2017-03-06] VITALS: Ht 162.6 cm; Wt 90.3 kg
[~2017-03-06 14:49] MED LIST changes: -FLUOXETINE HCL20 MG PO; +FLUOXETINE HCL40 MG PO
[2017-03-06 15:13] LABS: HEMATOCRIT 39.8 % (36.0-46.0); MCH 32.2 PG (29.0-34.0); MCHC 34.7 G/DL (30.0-36.0); MCV 92.8 FL (83-99); PLATELET COUNT 240 K/uL (156-360); RBC DIS.WIDTH-CV 14.9 % (11.8-14.6); RBC DIS.WIDTH-SD 51.1 % (39-53); RED BLOOD COUNT 4.29 M/uL (3.80-5.20); WHITE BLOOD COUNT 7.2 K/uL (4.1-10.2)
[2017-03-06 15:19] LABS: PROTHROMBIN TIME 23.1 SEC (10.2-12.9)
[2017-03-06 15:20] LABS: CHLORIDE 102 mEq/L (99-109); POTASSIUM 4.7 mEq/L (3.7-5.4); SODIUM 137 mEq/L (136-147)
[2017-03-06 15:22] LABS: GLUCOSE 110 mg/dL (70-99); PTT 34.8 SEC (25-37)
[2017-03-06 15:24] LABS: ANION GAP 11 MEQ/L (2-14); TOTAL BILIRUBIN 0.9 mg/dL (0.0-1.0)
[2017-03-06 15:26] LABS: ALKALINE PHOSPHATASE 129 IU/L (3-129); GFR ESTIMATE (CALCULATED) > 59 mL/min/
[2017-03-06 15:27] LABS: UREA NITROGEN (BUN) 14 mg/dL (9-23)
[2017-03-06 15:32] LABS: TROP-I INTERPRETATION NEGATIVE; TROPONIN-I < 0.01 ng/mL (0.0-0.30)
[2017-03-06 15:34] LABS: DIGOXIN 0.4 ng/mL (0.8-2.0)
[2017-03-06 23:39] VITALS: BP 135/91
[2017-03-07 04:36] VITALS: BP 120/81
[2017-03-07 09:27] VITALS: BP 123/78
[2017-03-07 12:47] VITALS: BP 132/78
[2017-03-07 14:47] LABS: INTER. NORMALIZED RATIO 2.5; PROTHROMBIN TIME 28.7 SEC (10.2-12.9)
[2017-03-07 15:16] LABS: BASOPHIL COUNT 0.1 K/uL (0-0.1); EOSINOPHIL (%) 0.6 % (0-5); HEMATOCRIT 38.3 % (36.0-46.0); IMMATURE GRANULOCYTE (%) 0.3 % (0.0-0.7); INSTRUMENT ABS NEUTROPHIL CT 4.5 K/uL; LYMPHOCYTE COUNT 1.7 K/uL (1.0-2.8); MCH 31.4 PG (29.0-34.0); MCHC 32.4 G/DL (30.0-36.0); MEAN PLAT.VOLUME 10.4 uM^3 (9.5-12.4); MONOCYTE (%) 5.7 % (3-12); MONOCYTE COUNT 0.4 K/uL (0-0.8); NEUTROPHIL (%) 67.4 % (45-76); NEUTROPHIL COUNT 4.5 K/uL (1.8-6.4); PLATELET COUNT 234 K/uL (156-360); RBC DIS.WIDTH-CV 14.9 % (11.8-14.6); RBC DIS.WIDTH-SD 53.8 % (39-53); RED BLOOD COUNT 3.95 M/uL (3.80-5.20); WHITE BLOOD COUNT 6.6 K/uL (4.1-10.2)
[2017-03-07 16:25] VITALS: BP 154/95
== END 2017-03-07 17:02 | disposition home or self-care (01) ==
LOC: EME 14:49 → 5WEST 19:04 → EDOF 19:04 → ENRESERV 19:05 → 5WEST 23:25
PROVIDERS: Emergency Medicine; Internal Medicine
DX: K52.9 Noninfective gastroenteritis and colitis, unspecified (principal); E86.0 Dehydration; G89.29 Other chronic pain; M54.5 Low back pain; I11.0 Hypertensive heart disease with heart failure; I50.32 Chronic diastolic (congestive) heart failure; I25.10 Atherosclerotic heart disease of native coronary artery without angina pectoris; I25.2 Old myocardial infarction; I48.2 Chronic atrial fibrillation; Z79.01 Long term (current) use of anticoagulants; K21.9 Gastro-esophageal reflux disease without esophagitis; E78.5 Hyperlipidemia, unspecified; I89.0 Lymphedema, not elsewhere classified; J44.9 Chronic obstructive pulmonary disease, unspecified; Z86.718 Personal history of other venous thrombosis and embolism; F31.9 Bipolar disorder, unspecified; M79.7 Fibromyalgia; E66.9 Obesity, unspecified; Z98.84 Bariatric surgery status; Z90.49 Acquired absence of other specified parts of digestive tract; Z96.653 Presence of artificial knee joint, bilateral; Z79.891 Long term (current) use of opiate analgesic; Z98.890 Other specified postprocedural states; Z80.0 Family history of malignant neoplasm of digestive organs; Z82.49 Family history of ischemic heart disease and other diseases of the circulatory system; Z88.0 Allergy status to penicillin; Z88.7 Allergy status to serum and vaccine; Z88.8 Allergy status to other drugs, medicaments and biological substances
CPT/HCPCS: 71020; 74176; 80053; 80162; 84484; 85025; 85027; 85610; 85730; 93005; 99202; 99281; 99285; G0378; J2270; J2405; J2765; J7030; J7120; S0028

== ENCOUNTER 2017-03-14 23:07 | Emergency (ER) | payer OTHER ==
[~2017-03-14] VITALS: Ht 162.6 cm; Wt 84.2 kg
[2017-03-15] MEDS ORDERED: PREDNISONE20 MG PO (01:47)
[2017-03-15 03:15] VITALS: BP 123/77
== END 2017-03-15 03:15 | disposition home or self-care (01) ==
LOC: EME → EDBD 23:07 → EME 03-15 03:15
DX: T40.2X1A Poisoning by other opioids, accidental (unintentional), initial encounter (principal); J44.1 Chronic obstructive pulmonary disease with (acute) exacerbation; G89.29 Other chronic pain; M54.5 Low back pain; Z91.81 History of falling; I10 Essential (primary) hypertension; Z79.01 Long term (current) use of anticoagulants; Z98.84 Bariatric surgery status
CPT/HCPCS: 93005; 94640; 99281; 99284; J2310; J7512

== ENCOUNTER 2017-07-19 12:14 | Emergency (ER) | payer OTHER ==
[~2017-07-19] VITALS: Ht 162.6 cm; Wt 87.3 kg
[2017-07-19 13:28] LABS: HEMATOCRIT 35.7 % (36.0-46.0); HEMOGLOBIN 11.8 G/DL (11.9-15.5); MCH 30.8 PG (29.0-34.0); MCHC 33.1 G/DL (30.0-36.0); MCV 93.2 FL (83-99); PLATELET COUNT 254 K/uL (156-360); RBC DIS.WIDTH-CV 13.4 % (11.8-14.6); RBC DIS.WIDTH-SD 45.9 % (39-53); RED BLOOD COUNT 3.83 M/uL (3.80-5.20); WHITE BLOOD COUNT 6.7 K/uL (4.1-10.2)
[2017-07-19 13:37] LABS: INTER. NORMALIZED RATIO 2.1
[2017-07-19] MEDS ORDERED: NORCO 5/3251 TABLET PO (15:42)
[2017-07-19 16:11] VITALS: BP 137/85
== END 2017-07-19 16:11 | disposition home or self-care (01) ==
LOC: EME 12:14
PROVIDERS: Physician Assistant
PROC: 2W39X1Z Immobilization of Left Upper Extremity using Splint (ICD-10-PCS; principal; 2017-07-19)
DX: S62.307A Unspecified fracture of fifth metacarpal bone, left hand, initial encounter for closed fracture (principal); M54.12 Radiculopathy, cervical region; S16.1XXA Strain of muscle, fascia and tendon at neck level, initial encounter; S09.90XA Unspecified injury of head, initial encounter; W01.0XXA Fall on same level from slipping, tripping and stumbling without subsequent striking against object, initial encounter; Z79.01 Long term (current) use of anticoagulants; M48.02 Spinal stenosis, cervical region; M85.80 Other specified disorders of bone density and structure, unspecified site; I11.0 Hypertensive heart disease with heart failure; I50.9 Heart failure, unspecified; J44.9 Chronic obstructive pulmonary disease, unspecified; M79.7 Fibromyalgia; I25.2 Old myocardial infarction; F32.9 Major depressive disorder, single episode, unspecified; K21.9 Gastro-esophageal reflux disease without esophagitis; F41.9 Anxiety disorder, unspecified; Z98.84 Bariatric surgery status; Z88.2 Allergy status to sulfonamides; Z88.0 Allergy status to penicillin; Z88.5 Allergy status to narcotic agent
CPT/HCPCS: 70450; 71120; 72125; 73130; 85027; 85610; 99281; 99284

== ENCOUNTER 2017-09-17 10:25 | Emergency (ER) | payer OTHER ==
[~2017-09-17] VITALS: Ht 162.6 cm; Wt 97.0 kg
[2017-09-17 11:48] LABS: HEMATOCRIT 35.5 % (36.0-46.0); HEMOGLOBIN 11.3 G/DL (11.9-15.5); MCH 29.4 PG (29.0-34.0); MCHC 31.8 G/DL (30.0-36.0); MCV 92.2 FL (83-99); PLATELET COUNT 235 K/uL (156-360); RBC DIS.WIDTH-CV 14.9 % (11.8-14.6); RBC DIS.WIDTH-SD 50.1 % (39-53); RED BLOOD COUNT 3.85 M/uL (3.80-5.20); WHITE BLOOD COUNT 5.7 K/uL (4.1-10.2)
[2017-09-17 11:57] LABS: CHLORIDE 106 mEq/L (99-109); POTASSIUM 4.2 mEq/L (3.7-5.4); SODIUM 141 mEq/L (136-147)
[2017-09-17 11:58] LABS: GLUCOSE 108 mg/dL (70-99); INTER. NORMALIZED RATIO 1.6
[2017-09-17 12:00] LABS: PTT 25.8 SEC (25-37)
[2017-09-17 12:02] LABS: CREATININE 0.8 mg/dL (0.6-1.3); GFR ESTIMATE (CALCULATED) > 59 mL/min/
[2017-09-17 12:03] LABS: UREA NITROGEN (BUN) 7 mg/dL (9-23)
[2017-09-17] MEDS ORDERED: ULTRAM50 MG PO (12:29)
[2017-09-17] MEDS ORDERED: DOXYCYCLINE HY100 MG PO (12:29)
[2017-09-17 13:12] VITALS: BP 148/98
== END 2017-09-17 13:15 | disposition home or self-care (01) ==
LOC: EME 10:25
PROVIDERS: Nurse Practitioner Family
DX: S70.01XA Contusion of right hip, initial encounter (principal); J32.9 Chronic sinusitis, unspecified; I48.91 Unspecified atrial fibrillation; Z79.01 Long term (current) use of anticoagulants; W18.30XA Fall on same level, unspecified, initial encounter; I11.0 Hypertensive heart disease with heart failure; I50.9 Heart failure, unspecified; I25.2 Old myocardial infarction; J44.9 Chronic obstructive pulmonary disease, unspecified; F32.9 Major depressive disorder, single episode, unspecified; F41.9 Anxiety disorder, unspecified; K21.9 Gastro-esophageal reflux disease without esophagitis; M79.7 Fibromyalgia; Z98.84 Bariatric surgery status; Z88.2 Allergy status to sulfonamides; Z88.0 Allergy status to penicillin
CPT/HCPCS: 70450; 70486; 71046; 73502; 80048; 85027; 85610; 85730; 93005; 99281; 99284

== ENCOUNTER 2017-10-16 11:47 | Inpatient (IN) | payer OTHER ==
[2017-10-16] VITALS (9 sets, daily range): BP systolic 141–179; BP diastolic 76–91
[~2017-10-16] VITALS: Ht 162.6 cm; Wt 83.6 kg
[2017-10-16 13:12] LABS: BASOPHIL (%) 0.4 % (0-1); EOSINOPHIL (%) 0.4 % (0-5); HEMATOCRIT 35.6 % (36.0-46.0); HEMOGLOBIN 11.9 G/DL (11.9-15.5); IMMATURE GRANULOCYTE (%) 0.4 % (0.0-0.7); LYMPHOCYTE COUNT 1.1 K/uL (1.0-2.8); MCH 29.7 PG (29.0-34.0); MCHC 33.4 G/DL (30.0-36.0); MCV 88.8 FL (83-99); MONOCYTE (%) 5.1 % (3-12); MONOCYTE COUNT 0.3 K/uL (0-0.8); NEUTROPHIL (%) 73.7 % (45-76); NEUTROPHIL COUNT 4.1 K/uL (1.8-6.4); RBC DIS.WIDTH-CV 15.7 % (11.8-14.6); RBC DIS.WIDTH-SD 51.1 % (39-53); RED BLOOD COUNT 4.01 M/uL (3.80-5.20); WHITE BLOOD COUNT 5.5 K/uL (4.1-10.2)
[2017-10-16 13:19] LABS: PLATELET COUNT 307 K/uL (156-360)
[2017-10-16 13:23] LABS: ALBUMIN 3.8 g/dL (3.2-4.8); CHLORIDE 101 mEq/L (99-109); POTASSIUM 2.7 mEq/L (3.7-5.4); SODIUM 136 mEq/L (136-147)
[2017-10-16 13:25] LABS: GLUCOSE 114 mg/dL (70-99); TOTAL PROTEIN 6.9 g/dL (6.4-8.3)
[2017-10-16 13:27] LABS: TOTAL BILIRUBIN 0.3 mg/dL (0.0-1.0)
[2017-10-16 13:29] LABS: ALKALINE PHOSPHATASE 86 IU/L (3-129); CREATININE 0.8 mg/dL (0.6-1.3); GFR ESTIMATE (CALCULATED) > 59 mL/min/
[2017-10-16 13:30] LABS: UREA NITROGEN (BUN) 10 mg/dL (9-23)
[2017-10-16 13:31] LABS: AST (GOT) 23 IU/L (2-34); INTER. NORMALIZED RATIO 4.7
[2017-10-16 13:32] LABS: ALT (GPT) 11 IU/L (3-49)
[2017-10-16 14:54] LABS: MAGNESIUM 2.3 mg/dL (1.3-2.7)
[2017-10-16 20:09] LABS: HEMATOCRIT 34.1 % (36.0-46.0); MCV 90.2 FL (83-99)
[2017-10-16 20:33] LABS: INTER. NORMALIZED RATIO 3.1
[2017-10-16 20:41] LABS: CHLORIDE 104 MEQ/L (99-109); CREATININE 0.7 MG/DL (0.6-1.3); GFR ESTIMATE (CALCULATED) > 59 mL/min/; GLUCOSE 108 mg/dL (70-99); POTASSIUM 2.8 MEQ/L (3.7-5.4); SODIUM 137 MEQ/L (136-147); UREA NITROGEN (BUN) 7 mg/dL (9-23)
[2017-10-17 00:06] VITALS: BP 153/79
[2017-10-17 03:25] VITALS: BP 171/91
[2017-10-17 05:20] LABS: HEMATOCRIT 31.2 % (36.0-46.0); HEMOGLOBIN 10.1 G/DL (11.9-15.5); MCH 29.4 PG (29.0-34.0); MCHC 32.4 G/DL (30.0-36.0); MCV 90.7 FL (83-99); PLATELET COUNT 235 K/uL (156-360); RBC DIS.WIDTH-CV 15.7 % (11.8-14.6); RBC DIS.WIDTH-SD 51.6 % (39-53); RED BLOOD COUNT 3.44 M/uL (3.80-5.20); WHITE BLOOD COUNT 3.7 K/uL (4.1-10.2)
[2017-10-17 05:22] LABS: INTER. NORMALIZED RATIO 2.6
[2017-10-17 05:45] LABS: ALBUMIN 3.1 G/DL (3.2-4.8); CHLORIDE 105 MEQ/L (99-109); CREATININE 0.6 MG/DL (0.6-1.3); GFR ESTIMATE (CALCULATED) > 59 mL/min/; GLUCOSE 88 mg/dL (70-99); PHOSPHORUS 2.2 mg/dL (2.5-4.9); POTASSIUM 2.6 MEQ/L (3.7-5.4); SODIUM 140 MEQ/L (136-147); UREA NITROGEN (BUN) 6 mg/dL (9-23)
[2017-10-17 11:32] VITALS: BP 176/83
[2017-10-17] MEDS ORDERED: PROZAC20 MG PO (11:54)
[2017-10-17] MEDS ORDERED: AMBIEN10 MG PO (11:55)
[2017-10-17] MEDS ORDERED: TYLENOL EXTRA500 MG PO (11:56)
[2017-10-17] MEDS ORDERED: FLONASE16 G1 BOTH NARES (11:56)
[2017-10-17 14:53] LABS: HEMATOCRIT 34.4 % (36.0-46.0); MCV 90.1 FL (83-99)
[2017-10-17 15:19] LABS: POTASSIUM 3.5 MEQ/L (3.7-5.4)
[2017-10-17 16:07] VITALS: BP 151/68
[2017-10-17 19:05] VITALS: BP 166/98
[2017-10-17 19:33] LABS: TROP-I INTERPRETATION NEGATIVE; TROPONIN-I 0.03 ng/mL (0.0-0.30)
[2017-10-17 22:51] LABS: HEMATOCRIT 31.3 % (36.0-46.0); HEMOGLOBIN 10.4 G/DL (11.9-15.5); MCV 89.4 FL (83-99)
[2017-10-17 23:50] VITALS: BP 145/79
[2017-10-18 04:13] VITALS: BP 156/89
[2017-10-18 05:34] LABS: HEMATOCRIT 32.2 % (36.0-46.0); HEMOGLOBIN 10.4 G/DL (11.9-15.5); INTER. NORMALIZED RATIO 1.8; MCH 29.1 PG (29.0-34.0); MCHC 32.3 G/DL (30.0-36.0); MCV 90.2 FL (83-99); PLATELET COUNT 234 K/uL (156-360); RBC DIS.WIDTH-CV 15.4 % (11.8-14.6); RBC DIS.WIDTH-SD 51.8 % (39-53); RED BLOOD COUNT 3.57 M/uL (3.80-5.20); WHITE BLOOD COUNT 3.4 K/uL (4.1-10.2)
[2017-10-18 06:09] LABS: ALBUMIN 3.4 G/DL (3.2-4.8); CHLORIDE 103 MEQ/L (99-109); CREATININE 0.6 MG/DL (0.6-1.3); GFR ESTIMATE (CALCULATED) > 59 mL/min/; GLUCOSE 102 mg/dL (70-99); PHOSPHORUS 2.9 mg/dL (2.5-4.9); SODIUM 134 MEQ/L (136-147); UREA NITROGEN (BUN) 4 mg/dL (9-23)
[2017-10-18 08:07] VITALS: BP 163/97
[2017-10-18] MEDS ORDERED: DIGOX125 MCG PO (11:05)
[2017-10-18] MEDS ORDERED: FLONASE16 G1 BOTH NARES (11:05)
[2017-10-18] MEDS ORDERED: PERCOCET 10/1 TABLET PO (11:05)
[2017-10-18] MEDS ORDERED: PROZAC20 MG PO (11:05)
[2017-10-18] MEDS ORDERED: FUROSEMIDE40 MG PO (11:05)
[2017-10-18] MEDS ORDERED: COUMADIN5 MG PO (11:05)
[2017-10-18] MEDS ORDERED: ALBUTEROL2.5 MG/3 M IH (11:05)
[2017-10-18] MEDS ORDERED: PROTONIX40 MG PO (11:05)
[2017-10-18] MEDS ORDERED: FLUOXETINE HCL40 MG PO (11:05)
[2017-10-18] MEDS ORDERED: ADVAIR HFA120 INHALA IH (11:05)
[2017-10-18] MEDS ORDERED: K-DUR20 MEQ PO (11:05)
[2017-10-18] MEDS ORDERED: PROAIR HFA8.5 GM IH (11:05)
[2017-10-18 12:56] VITALS: BP 194/105
[2017-10-18 13:21] VITALS: BP 153/90
== END 2017-10-18 16:52 | disposition home or self-care (01) | DRG 392 ==
LOC: EME 11:47 → 4SOUTH 14:16 → EDOF 14:16 → ENRESERV 14:17 → 4SOUTH 15:40 → ENPENDDIS 10-18 11:20 → 4SOUTH 10-18 16:52
PROVIDERS: Emergency Medicine; Internal Medicine; Internal Medicine Gastroenterology; Nurse Practitioner Adult Health
PROC: 30233K1 Transfusion of Nonautologous Frozen Plasma into Peripheral Vein, Percutaneous Approach (ICD-10-PCS; principal; 2017-10-16)
PROC: 0DJ08ZZ Inspection of Upper Intestinal Tract, Via Natural or Artificial Opening Endoscopic (ICD-10-PCS; 2017-10-17)
DX: K21.0 Gastro-esophageal reflux disease with esophagitis (principal); K22.70 Barrett's esophagus without dysplasia; R79.1 Abnormal coagulation profile; T45.515A Adverse effect of anticoagulants, initial encounter; E87.6 Hypokalemia; I25.10 Atherosclerotic heart disease of native coronary artery without angina pectoris; I11.0 Hypertensive heart disease with heart failure; I50.32 Chronic diastolic (congestive) heart failure; I48.2 Chronic atrial fibrillation; J44.9 Chronic obstructive pulmonary disease, unspecified; I35.0 Nonrheumatic aortic (valve) stenosis; E66.9 Obesity, unspecified; Z68.31 Body mass index [BMI] 31.0-31.9, adult; E78.5 Hyperlipidemia, unspecified; M19.90 Unspecified osteoarthritis, unspecified site; M79.7 Fibromyalgia; G89.29 Other chronic pain; F31.9 Bipolar disorder, unspecified; F41.9 Anxiety disorder, unspecified; I25.2 Old myocardial infarction; Z87.11 Personal history of peptic ulcer disease; Z86.718 Personal history of other venous thrombosis and embolism; Z96.653 Presence of artificial knee joint, bilateral; Z95.828 Presence of other vascular implants and grafts; Z98.84 Bariatric surgery status; Z79.891 Long term (current) use of opiate analgesic; Z82.49 Family history of ischemic heart disease and other diseases of the circulatory system
CPT/HCPCS: 71045; 80048; 80048 91; 80053; 80069; 83735; 84132 91; 84484; 84999; 85014; 85018; 85025; 85027; 85610; 86850; 86900; 86901; 93005; 94640; 99202; 99281; 99285; C9113; G0378; J3480; J7030; P9017

== ENCOUNTER 2017-10-24 23:17 | Emergency (ER) | payer OTHER ==
[~2017-10-24] VITALS: Ht 162.6 cm; Wt 83.9 kg
[~2017-10-24 23:17] MED LIST changes: +FLONASE16 G1 BOTH NARES; +PROZAC20 MG PO
[2017-10-24 23:38] LABS: HEMATOCRIT 36.9 % (36.0-46.0); HEMOGLOBIN 12.1 G/DL (11.9-15.5); MCH 29.7 PG (29.0-34.0); MCHC 32.8 G/DL (30.0-36.0); MCV 90.4 FL (83-99); PLATELET COUNT 266 K/uL (156-360); RBC DIS.WIDTH-SD 50.2 % (39-53); RED BLOOD COUNT 4.08 M/uL (3.80-5.20); WHITE BLOOD COUNT 6.3 K/uL (4.1-10.2)
[2017-10-24 23:58] LABS: CHLORIDE 98 mEq/L (99-109); POTASSIUM 4.6 mEq/L (3.7-5.4); SODIUM 135 mEq/L (136-147)
[2017-10-24 23:59] LABS: GLUCOSE 100 mg/dL (70-99)
[2017-10-25 00:03] LABS: CREATININE 0.8 mg/dL (0.6-1.3); GFR ESTIMATE (CALCULATED) > 59 mL/min/
[2017-10-25 00:04] LABS: UREA NITROGEN (BUN) 8 mg/dL (9-23)
[2017-10-25 00:46] LABS: ALBUMIN 4.2 g/dL (3.2-4.8)
[2017-10-25 00:49] LABS: TOTAL PROTEIN 7.2 g/dL (6.4-8.3)
[2017-10-25 00:51] LABS: TOTAL BILIRUBIN 0.5 mg/dL (0.0-1.0)
[2017-10-25 00:52] LABS: ALKALINE PHOSPHATASE 117 IU/L (3-129)
[2017-10-25 00:54] LABS: AST (GOT) 16 IU/L (2-34); DIRECT BILIRUBIN 0.2 mg/dL (0.0-0.3)
[2017-10-25 00:55] LABS: ALT (GPT) 10 IU/L (3-49); LIPASE 13 U/L (1.0-51.0)
[2017-10-25 01:58] LABS: INTER. NORMALIZED RATIO 1.6
[2017-10-25 02:01] LABS: PTT 33.9 SEC (25-37)
[2017-10-25 02:26] LABS: TROP-I INTERPRETATION NEGATIVE; TROPONIN-I < 0.01 ng/mL (0.0-0.30)
[2017-10-25] MEDS ORDERED: REGLAN10 MG PO (03:11)
[2017-10-25 03:48] VITALS: BP 142/82
== END 2017-10-25 03:57 | disposition home or self-care (01) ==
LOC: EME 23:17
PROVIDERS: Emergency Medicine
DX: R11.2 Nausea with vomiting, unspecified (principal); R51 Headache; R10.10 Upper abdominal pain, unspecified; R42 Dizziness and giddiness; Z79.01 Long term (current) use of anticoagulants; Z98.84 Bariatric surgery status; Z90.49 Acquired absence of other specified parts of digestive tract; I45.10 Unspecified right bundle-branch block; I25.2 Old myocardial infarction; J44.9 Chronic obstructive pulmonary disease, unspecified; Z88.0 Allergy status to penicillin; Z88.2 Allergy status to sulfonamides; I11.0 Hypertensive heart disease with heart failure; I50.9 Heart failure, unspecified
CPT/HCPCS: 71045; 80048; 80076; 83690; 84484; 85027; 85610; 85730; 86850; 86900; 86901; 93005; 99281; 99284; J2405; J2765; J7030; S0028

== ENCOUNTER 2017-12-01 20:49 | Emergency (ER) | payer OTHER ==
[~2017-12-01] VITALS: Ht 162.6 cm; Wt 86.0 kg
[~2017-12-01 20:49] MED LIST changes: +REGLAN10 MG PO
[2017-12-01 21:34] LABS: BASOPHIL (%) 0.5 % (0-1); EOSINOPHIL (%) 1.7 % (0-5); EOSINOPHIL COUNT 0.1 K/uL (0-0.3); HEMOGLOBIN 11.1 G/DL (11.9-15.5); IMMATURE GRANULOCYTE (%) 0.3 % (0.0-0.7); LYMPHOCYTE (%) 31.5 % (15-42); LYMPHOCYTE COUNT 1.9 K/uL (1.0-2.8); MCH 28.7 PG (29.0-34.0); MCHC 32.6 G/DL (30.0-36.0); MCV 87.9 FL (83-99); MONOCYTE (%) 7.9 % (3-12); MONOCYTE COUNT 0.5 K/uL (0-0.8); NEUTROPHIL (%) 58.1 % (45-76); NEUTROPHIL COUNT 3.5 K/uL (1.8-6.4); PLATELET COUNT 229 K/uL (156-360); RBC DIS.WIDTH-CV 15.2 % (11.8-14.6); RBC DIS.WIDTH-SD 48.9 % (39-53); RED BLOOD COUNT 3.87 M/uL (3.80-5.20)
[2017-12-01 21:42] LABS: PTT 45.4 SEC (25-37)
[2017-12-01 21:50] LABS: ALBUMIN 3.7 g/dL (3.2-4.8); CHLORIDE 107 mEq/L (99-109); POTASSIUM 3.3 mEq/L (3.7-5.4); SODIUM 140 mEq/L (136-147)
[2017-12-01 21:52] LABS: GLUCOSE 111 mg/dL (70-99); TOTAL PROTEIN 6.6 g/dL (6.4-8.3)
[2017-12-01 21:54] LABS: TOTAL BILIRUBIN 0.3 mg/dL (0.0-1.0)
[2017-12-01 21:56] LABS: ALKALINE PHOSPHATASE 101 IU/L (3-129); CREATININE 0.8 mg/dL (0.6-1.3); GFR ESTIMATE (CALCULATED) > 59 mL/min/; TROP-I INTERPRETATION NEGATIVE; TROPONIN-I < 0.01 ng/mL (0.0-0.30)
[2017-12-01 21:57] LABS: UREA NITROGEN (BUN) 16 mg/dL (9-23)
[2017-12-01 21:58] LABS: AST (GOT) 11 IU/L (2-34)
[2017-12-01 21:59] LABS: ALT (GPT) 7 IU/L (3-49); LIPASE 26 U/L (1.0-51.0)
[2017-12-01 22:05] LABS: DIGOXIN 0.4 ng/mL (0.8-2.0)
[2017-12-02] MEDS ORDERED: LORTAB 5-325 M1 EACH PO (01:00)
[2017-12-02] MEDS ORDERED: PREDNISONE20 MG PO (01:00)
[2017-12-02] MEDS ORDERED: ZANTAC150 MG PO (01:00)
[2017-12-02] MEDS ORDERED: COMPAZINE25 M1 PR (01:01)
[2017-12-02 01:25] VITALS: BP 138/96
== END 2017-12-02 01:30 | disposition home or self-care (01) ==
LOC: EME 20:49
PROVIDERS: Emergency Medicine
DX: J44.1 Chronic obstructive pulmonary disease with (acute) exacerbation (principal); R11.2 Nausea with vomiting, unspecified; R10.13 Epigastric pain; I11.0 Hypertensive heart disease with heart failure; I50.9 Heart failure, unspecified; I25.2 Old myocardial infarction; Z86.718 Personal history of other venous thrombosis and embolism; Z90.49 Acquired absence of other specified parts of digestive tract; Z98.84 Bariatric surgery status; K21.9 Gastro-esophageal reflux disease without esophagitis; F32.9 Major depressive disorder, single episode, unspecified; F41.9 Anxiety disorder, unspecified; M79.7 Fibromyalgia; I48.91 Unspecified atrial fibrillation; Z88.2 Allergy status to sulfonamides; Z88.0 Allergy status to penicillin; Z88.5 Allergy status to narcotic agent
CPT/HCPCS: 71046; 74177; 80053; 80162; 81003; 83690; 83735; 83880; 84484; 85025; 85610; 85730; 87493; 93005; 94640; 99281; 99285; J2405; J2765; J2930; J3010; J7040; S0028